=== PATIENT | male | born 1950 | race Caucasian/White ===

== ENCOUNTER 2019-08-11 10:02 | Outpatient (CLI) | payer MEDICARE, BC, SELFPAY ==
[2019-08-11 12:47] LABS: Calculated LDL 120 mg/dL (<100); Cholesterol 194 mg/dL (<200); HDL Cholesterol 63 mg/dL (40-60); Triglyceride 57 mg/dL (<150)
[2019-08-13 09:02] LABS: PSA, Diagnostic 2.4 ng/mL (0.0-4.5)
== END 2019-08-11 10:22 ==
PROVIDERS: PCP Emergency Medicine; Visit Provider Family Medicine
DX: E78.00 Pure hypercholesterolemia, unspecified (principal); N52.9 Male erectile dysfunction, unspecified; N40.0 Benign prostatic hyperplasia without lower urinary tract symptoms
CPT/HCPCS: 36415; 80061; 84153

== ENCOUNTER 2020-02-01 07:18 | Outpatient (CLI) | payer MEDICARE, BC, SELFPAY ==
[2020-02-06 01:35] LABS: SARS-CoV-2 RNA Undetected (Undetected); SARS-CoV-2 Specimen Source Nasopharynx
== END 2020-02-01 07:38 ==
PROVIDERS: PCP Emergency Medicine; Visit Provider Family Medicine
DX: Z11.59 Encounter for screening for other viral diseases (principal)
CPT/HCPCS: U0003

== ENCOUNTER 2023-10-25 01:03 | Outpatient (CLI) | payer MEDICARE, BC, SELFPAY ==
[2023-10-25 12:33] LABS: ALT 35 U/L (16-63); AST 20 U/L (15-37); Alkaline Phosphatase 73 U/L (46-116); Anion Gap 7.8 mmol/L (3-11); BUN 18 mg/dL (7-18); CO2 29.2 mmol/L (21.0-32.0); CREATININE 1.1 mg/dL (0.70-1.30); Calcium 9.7 mg/dL (8.5-10.1); Calculated LDL 102 mg/dL (<100); Chloride 101 mmol/L (98-107); Cholesterol 185 mg/dL (<200); Estimated GFR 71.32 (mL/min/1.73m2); Glucose 117 mg/dL (74-106); HDL Cholesterol 73 mg/dL (40-60); Potassium 4.2 mmol/L (3.5-5.1); Sodium 138 mmol/L (136-145); Total Protein 7.3 g/dL (6.4-8.2); Triglyceride 50 mg/dL (<150)
[2023-10-25 18:25] LABS: PSA, Diagnostic 3.7 ng/mL (<=6.5)
== END 2023-10-25 01:04 | disposition home or self-care (01) ==
LOC: LOS 01:03
PROVIDERS: PCP Family Medicine; Visit Provider Family Medicine
DX: I10 Essential (primary) hypertension (principal); E03.9 Hypothyroidism, unspecified; N40.0 Benign prostatic hyperplasia without lower urinary tract symptoms
CPT/HCPCS: 36415; 80053; 80061; 84153; 84443

== ENCOUNTER → 2024-11-16 09:14 | Outpatient (BNVA) | payer MEDICARE, BC, SELFPAY | PROVIDERS: PCP Family Medicine; Referring Provider Family Medicine; Visit Provider Student in an Organized Health Care Education/Training Program | DX: R13.10 Dysphagia, unspecified (principal); K44.9 Diaphragmatic hernia without obstruction or gangrene | CPT/HCPCS: 99203 ==

== ENCOUNTER 2024-12-31 01:10 | Outpatient (CLI) | payer MEDICARE, BC, SELFPAY ==
[2024-12-31 13:53] LABS: ALT 36 U/L (16-63); AST 21 U/L (15-37); Albumin 3.7 g/dL (3.4-5.0); Alkaline Phosphatase 89 U/L (46-116); Anion Gap 6.3 mmol/L (3-11); BUN 17 mg/dL (7-18); Bilirubin, Total 0.8 mg/dL (0.2-1.0); CO2 29.7 mmol/L (21.0-32.0); Calcium 9.3 mg/dL (8.5-10.1); Chloride 102 mmol/L (98-107); Estimated GFR 79.47 (mL/min/1.73m2); Glucose 113 mg/dL (74-106); Potassium 4.1 mmol/L (3.5-5.1); Sodium 138 mmol/L (136-145)
[2024-12-31 18:41] LABS: PSA, Diagnostic 4.2 ng/mL (<=6.5)
[2024-12-31 19:18] LABS: Hepatitis C Ab w Rflx HCV PCR Negative (Negative)
== END 2024-12-31 01:11 | disposition home or self-care (01) ==
PROVIDERS: PCP Family Medicine; Visit Provider Family Medicine
DX: Z11.59 Encounter for screening for other viral diseases (principal); I10 Essential (primary) hypertension; N40.0 Benign prostatic hyperplasia without lower urinary tract symptoms
CPT/HCPCS: 36415; 80053; 86803; 84153

== ENCOUNTER 2025-01-18 11:55 | Day surgery (SDC) | payer MEDICARE, BC, SELFPAY ==
[2025-01-18 12:06] VITALS: BP 135/88; PULSE 65; RESP 16; TEMP 36.7; O2SAT 98
--- NOTE | 2025-01-18 12:09 | W.SURGCON ---
Date of service: 01/18/25 Time of Service: 12:10 Assessment and Plan Assessment and plan (1) Hiatal hernia: Status: Chronic Assessment and plan: 74-year-old man with a symptomatic hiatal hernia. Due for EGD evaluation. He also gets some dysphagia here and there. Presumably this is kinking of his esophagus but if there is an actual stricture from longstanding acid reflux, he may benefit from dilation. Overall plan: EGD with possible dilation History of Present Illness Narrative: Damion is a healthy 74-year-old man who is known to me from prior consultation. He has had no new symptoms and no changes in his existing symptoms. He has been told in the past he has a hiatal hernia. He does not take medication to manage his acid reflux. Occasionally things get stuck. 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) T7-8 level MRI 10/26 Male erectile dysfunction, unspecified (Chronic 09/27/15) Anxiety (Chronic 09/28/16) Medical History (Updated 01/18/25 @ 13:20 by Zackery Schneider MD) Hemorrhoids Fatigue Right sided sciatica (01/08/18) Migraine Left inguinal hernia (01/08/18) Irritable bowel syndrome with constipation (09/06/17) Grief at loss of child (04/23/17) son killed in MVA 2017 Dysphagia globus Constipation Carpal tunnel syndrome bilateral Actinic keratosis Surgical History History of arthroplasty Status post inguinal hernia repair Status post tonsillectomy S/P unilateral inguinal hernia repair S/P right inguinal hernia repair S/P tonsillectomy S/P vasectomy H/O esophagogastroduodenoscopy strictures Vasectomy Tonsillectomy Repair of inguinal hernia RIGHT EGD - MAC (~2010) Colonoscopy - MAC (10/16/17) Arthroscopy WRIST; tenosynovitis repair Family History Mother , age 84 Depression Heart disease Father Diabetes Heart disease Glaucoma Sister Depression Sister Depression Brother No problems noted. Brother No problems noted. Maternal Grandfather , age 65 Diabetes Paternal Grandfather , age 75 No problems noted. Maternal Grandmother , age 65 No problems noted. Paternal Grandmother , age 75 No problems noted. Daughter Depression Daughter Depression Maternal History Anxiety Migraine Degenerative joint disease of low back Paternal History Glaucoma Social History (Updated 10/25/23 @ 11:27 by Marj Vasquez) Smoking/Tobacco Use Status: Never Second Hand Exposure: Yes Smoking risk assessment performed?: Yes Alcohol Intake: current Alcohol Intake frequency: a few times a week Alcohol type: beer and hard liquor Drug use: Never Substance use type: does not use Adopted: No Caregiver/Support person: No Household members: spouse Housing: house Number of Children: 4 number of grandchildren: 3 Communication Needs: Corrective Lenses Education Level: college Do you need help understanding health information?: Rarely 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, 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 Pets and animals: No Sexually active: Yes Do you think of yourself as: straight/heterosexual Current gender identity: male What is your relationship status?: How often do you talk on the phone with friends or family?: three or more times per week How often do you get together with friends or relatives?: once per week How often do you attend latter-day or restoration services?: 1-3 times per year Do you belong to any clubs or organized social groups?: yes Panel score (0-1 are the most socially isolated patients): 3 What type of physical activity do you participate in: walking, aerobic, bicycling, weight lifting and yoga Duration: 30-45 minutes/day Frequency: 3-4 times per week Gwendolyn/Jainism: Yarsanism Special gwendolyn needs: No Seatbelt use: always Helmet use: Yes Helmet use: always Drive intox or ride w/intox cdl company driver: No Firearms in home: Yes Firearms unloaded and locked: Yes Do you feel safe at home: Yes Do you feel safe in your relationship?: Yes Victim of physical abuse: No Victim of emotional abuse: No Victim of sexual abuse: No Would you like helpful sources: No Exam Narrative Exam Narrative: Gen: Non-toxic, comfortable and interactive Neuro: Alert and oriented x3 Psych: Good mood and affect. Good insight and understanding into condition. Chest: Non-labored breathing, no wheezing, no visible shortness of breath. Heart: Regular
--- NOTE | 2025-01-18 12:11 | W.PM.DSUDISC ---
Date of service: 01/18/25 Discharge Plan Disposition Patient Disposition: Home Condition: Good Discharge Details Attending Provider: Zackery Schneider Primary Care Provider: Rafaela Gong Home Meds and New Rx's Prescriptions: No Action diclofenac sodium [Voltaren Arthritis Pain] 1 % gel 2 g topical QID PRN [id number]-N6 1,000mcg-680mcg DFE-1.5 mg tablet,chewable 1 tab PO DAILY Patient Comments: Suggested by Dr Gong duloxetine 30 mg capsule,delayed release(/EC) 30 mg PO BID Qty: 180 4RF sildenafil [Viagra] 100 mg tablet 100 mg PO DIRECTED PRN (Reason: sexual activity) Qty: 30 4RF ciprofloxacin HCl 500 mg tablet 500 mg PO BID Qty: 14 0RF Rx Instructions: take 1 after each loose stool zinc gluconate 30 mg tablet See Rx Instructions PO DAILY Rx Instructions: 15mg PO daily; Magnesium Cholate 450 mg PO DAILY Metamucil 3.4 gram/5.4 gram powder 2 tsp PO DAILY PRN Rx Instructions: mix into at least 8 oz of water or juice before administering Tvc-U-Upceibn Forte 50 mcg/drop (2, 000 unit/drop) drops 25 mcg PO DAILY vitamin B complex Tablet 1 tab PO DAILY tonkat ali 500 mg 2 tab PO DAILY acetaminophen [Tylenol Extra Strength] 500 MG tablet 1,000 mg PO PRN PRN Discharge Instructions Additional Instructions: FINDINGS: You have a moderate?size hiatal hernia. This is causing your acid reflux. The acid reflux is causing inflammation at the bottom of your esophagus which is what you feel from time to time. I recommend that you either start taking medication for this or, consider repairing the hiatal hernia to prevent continued acid reflux. I do NOT recommend continuing with the current strategy of no medication and no surgery which I believe puts you at risk for developing esophagus cancer. If you want to start antiacid medications, then you should follow-up with your PCP and discuss. If you want to discuss hiatal hernia surgery which will result in preventing further acid reflux, schedule follow-up visit with me to discuss further. Stand Alone Forms: Anesthesia Discharge Inst., Colonoscopy Post Instructions, Saray Sutherland (DSU) Activity:: Activity as Tolerated Diet:: As Tolerated Discharge Orders Discharge Orders: Discharge Order (Routine); Ordered 01/18/25 Ordered By: Zackery Schneider
--- NOTE | 2025-01-18 12:21 | W.ANESPRE ---
General Info Date of Service Date Performed: 01/18/25 Height: 5 ft 10 in Weight: 77.8 kg Body Mass Index (BMI): 24.6 Surgical Procedure: Operation Date: 01/18/25 12:20 Proposed Procedure Side Surgeon p Gastroscopy with Dilation Zackery Schneider MD Meds Allergies and Home Medications Allergies Allergy/AdvReac Type Severity Reaction Status Date / Time lactose Allergy Severe INTOLERANT Verified 01/18/25 12:04 morphine Allergy Unknown RASH Verified 01/18/25 12:04 Penicillins Allergy Unknown As a Verified 01/18/25 12:04 child, cannot recall reaction Home Medication ?Medication ?Instructions ?Recorded acetaminophen 500 mg tablet 1,000 mg PO PRN PRN 02/14/16 (Tylenol Extra Strength) zinc gluconate 30 mg tablet See Rx Instructions PO DAILY 09/19/21 Magnesium Cholate 450 mg PO DAILY 10/08/22 cholecalciferol (vitamin D3) 50 25 mcg PO DAILY 10/08/22 mcg/drop (2,000 unit/drop) oral drops (Utk-A-Dtlsupy Forte) vitamin B complex 1 tab PO DAILY 10/08/22 diclofenac sodium 1 % topical gel 2 g topical QID PRN 09/02/23 (Voltaren Arthritis Pain) tonkat ali 2 tab PO DAILY 09/24/24 B12 1,000 1 tab PO DAILY More energy 11/10/24 mcg-methyltetrahydrofolate 680 mcg DFE-B6 1.5 mg chew tablet ciprofloxacin HCl 500 mg tablet 500 mg PO BID #14 tabs 11/10/24 duloxetine 30 mg capsule,delayed 30 mg PO BID #180 tab-caps 11/10/24 release sildenafil 100 mg tablet (Viagra) 100 mg PO DIRECTED PRN sexual 11/10/24 activity #30 tabs psyllium husk 3.4 gram/5.4 gram 2 tsp PO DAILY PRN 11/16/24 oral powder (Metamucil) Current Visit Medications: Current Medications Generic Name Dose Route Start Last Admin Trade Name Freq PRN Reason Stop Dose Admin Ringer's Solution 1,000 mls @ 80 mls/hr 01/18/25 06:00 IV 01/18/25 23:59 [facility] IV Miscellaneous Supplies 1 each 01/18/25 06:00 Iv Access IV 01/18/25 23:59 DIRECTED VANESA Sodium Chloride 0 ml 01/18/25 06:00 Normal Saline Flush 10 Ml Syr IV 01/18/25 23:59 PRN PRN Sodium Chloride 0 ml 01/18/25 06:00 Normal Saline 10 Ml Vial IJ 01/18/25 23:59 DIRECTED PRN Sterile Water 0 ml 01/18/25 06:00 Water,Injection,Sterile 10 Ml Vial IJ 01/18/25 23:59 DIRECTED PRN PFSH Active Problems Active Problems: Problem Status Onset Code Hand joint pain Acute M25.549 Esophageal stricture Acute K22.2 Thoracic back pain Acute M54.6 Elevated blood pressure reading Acute R03.0 Thoracic disc herniation Chronic 07/14/13 M51.24 Male erectile dysfunction, unspecified Chronic 09/27/15 N52.9 Anxiety Chronic 09/28/16 F41.9 Medical History Medical History Hemorrhoids Fatigue Right sided sciatica (01/08/18) Migraine Left inguinal hernia (01/08/18) Irritable bowel syndrome with constipation (09/06/17) Grief at loss of child (04/23/17) son killed in MVA 2017 Dysphagia globus Constipation Carpal tunnel syndrome bilateral Actinic keratosis Surgical History Surgical History History of arthroplasty Status post inguinal hernia repair Status post tonsillectomy S/P unilateral inguinal hernia repair S/P right inguinal hernia repair S/P tonsillectomy S/P vasectomy H/O esophagogastroduodenoscopy strictures Vasectomy Tonsillectomy Repair of inguinal hernia RIGHT EGD - MAC (~2010) Colonoscopy - MAC (10/16/17) Arthroscopy WRIST; tenosynovitis repair Tobacco Smoking/Tobacco Use Status: Never Passive smoking exposure: Yes Second hand exposure: Yes Alcohol Alcohol Intake: current Alcohol intake frequency: a few times a week Alcohol type: beer and hard liquor Substance Use Substance use: Never Substance use type: does not use Vital Signs and Lab Results Vital Signs Most Recent Vital Signs in EMR: Most Recent Vital Signs Temp Pulse Resp BP Pulse Ox 36.7 C 65 16 135/88 98 01/18/25 12:06 01/18/25 12:06 01/18/25 12:06 01/18/25 12:06 01/18/25 12:06 Lab Results Complete Metabolic Panel: Sodium, (136-145) 138 mmol/L 12/31/24, 10:15 Potassium, (3.5-5.1) 4.1 mmol/L 12/31/24, 10:15 Chloride, (98-107) 102 mmol/L 12/31/24, 10:15 Carbon Dioxide, (21.0-32.0) 29.7 mmol/L 12/31/24, 10:15 BUN, (7-18) 17 mg/dL 12/31/24, 10:15 Creatinine, (0.70-1.30) 1.0 mg/dL 12/31/24, 10:15 Est GFR (CKD-EPI 2020), (mL/min/1.73m2) 79.47 12/31/24, 10:15 Calcium, (8.5-10.1) 9.3 mg/dL 12/31/24, 10:15 Albumin, (3.4-5.0) 3.7 g/dL 12/31/24, 10:15 Glucose, (74-106) 113 mg/dL H 12/31/24, 10:15 Liver Function Panel: ALT, (16-63) 36 U/L 12/31/24, 10:15 AST, (15-37) 21 U/L 12/31/24, 10:15 Infectious Disease: Hepatitis C Antibody, (Negative) Negative 12/31/24, 10:15 Anesthesia Assessment and Plan Anesthesia History Personal History: No History of Anesthesia Complications Family History: No Family History of Anesthesia Complications Exercise Tolerance Exercise Tolerance: Metabolic Equivalents>4 Cardiac & Pulmonary Exam Cardiac Exam: Normal S1/S2 Heart Sounds Pulmonary Exam: Clear Bilateral Breath Sounds Implantable Cardiac Device Does patient have a Pacemaker or an ICD?: No Airway Exam Known Difficult Airway: No Mallampati Class: 3 Mouth Opening: Normal (> 3cm) Thyromental Distance: Less than 3 cm Neck Range of Motion: Full ROM Neck Circumference: Normal Teeth Condition: Normal Dentition ASA Classification ASA Score: ASA 2 Emergency Case?: No NPO Status NPO Status: NPO Clears >2 hours, Solids >8 hours Anesthesia Plan Resuscitation Status: Full Code Anesthesia Technique: General Anesthesia Airway Planned: Natural Airway Monitors Used: Standard Monitors Preoperative Comments:: 74 yo male for EGD/dilation. Sig PMHx: GERD (watches what he eats. gets it 1-2 times per week. no meds), esophageal stricture, anxiety, never smoker, occ EtOH. Previous Anes: - colo, prop, natural airway, no issues.
[2025-01-18] MEDS: Lactated Ringers 1,000 ML 80 ML IV (12:27)
[2025-01-18 12:39] VITALS: BMI 24.6
--- NOTE | 2025-01-18 13:21 | ENDO_ITS ---
Date of service: 01/18/25 Time of Service: 13:21 Endoscopy Report PROCEDURE DESCRIPTION: PROCEDURES PERFORMED: 1. EGD with biopsies PREOPERATIVE DIAGNOSIS: Hiatal hernia, GERD with esophagitis, dysphagia POSTOPERATIVE DIAGNOSIS: Moderate?sized type I hiatal hernia (Hill grade 3), di stal esophagitis SURGEON: Albert Schneider MD INDICATION FOR PROCEDURE: 74-year-old man who reports he has a known hiatal hernia. He has on and off acid reflux. He also occasionally notices that things get stuck. He does not take any treatment for his acid reflux. FINDINGS: D2/D3 = normal D1/bulb = normal - no ulcers or inflammation Pylorus = normal Antrum = normal appearance, no ulcers, cold forceps biopsies were taken to rule out H. pylori routinely Body = normal appearance Fundus = normal, no polyps Cardia = normal Hiatus = Hill grade 3 hiatal defect. Sliding type I hiatal hernia. Approximately 3 cm slide. GE JUNCTION = at the GE junction is polypoid and inflammatory tissue. I do not think this represents cancer but it certainly could harbor dysplasia or early cancer based on the appearance. If this was cancerous, it would be Siewart class II (cardiac carcinoma). Multiple biopsies were taken here. This is certainly the cause of why food occasionally gets stuck. Distal esophagus = proximal to the true GE junction, there is no visible inflammation and separate biopsies were taken here to assess. Mid esophagus = normal in appearance Proximal esophagus/hypopharynx/vocal cords = normal SURVEILLANCE-INTERVAL/FOLLOW-UP: Based off of the findings at the GE junction - the patient needs to either start antiacid medical therapy or consider hiatal hernia repair with antireflux surgery Specimens: Yes EBL: Minimal COMPLICATIONS: None Procedure in detail: The patient gave written consent and was in agreement with the indications, the potential risks as well as the benefits of the procedure. The patient was taken to the endoscopy suite and laid on their left side. Anesthesia was given which was tolerated well. We performed a timeout and we are in agreement I started the procedure. A well-lubricated endoscope was gently and carefully advanced down the esophagus, into the stomach the scope was and through the pylorus into the duodenum. The scope was then slowly withdrawn with the above-noted findings/interventions. The patient tolerated the procedure well and was then taken to the PACU/day surgery in stable condition.
--- NOTE | 2025-01-18 13:33 | STOM_PTH ---
PATIENT: Juan Garcia LOC: [facility] U#:[id number] AGE/SX: 74/M ROOM: RE01/18/[address]: Zackery Schneider : 1950 BED: DIS: 01/18/2025 SPEC #: [id number] RECD: 01/18/25 15:46 STATUS: CATY RE #: [id number] LAURO: 01/18/25 13:[address]: Zackery Schneider DEPT: Surgical Specimen RECD BY: Joellen Gordon ENTERED: 01/18/25 15:48 SP TYPE: STOMACH OTHR DR: Rafaela Gong MD, DC Tissues: 1 - STOMACH BIOPSY 2 - STOMACH BIOPSY 3 - ESOPHAGUS BIOPSY Procedures: GROSS AND MICRO LEVEL 4 Comments: [id number]
[2025-01-18 13:46] VITALS: BP 128/91; PULSE 66; RESP 17; TEMP 36.5; O2SAT 98
--- NOTE | 2025-01-18 14:04 | W.ANESPOSTOP ---
Postoperative Evaluation Date, Time and Location Date Performed: 01/18/25 Time Performed: 13:49 Patient Location: Day Surgery Unit Vital Signs Most Recent Imported Vital Signs: Most Recent Vital Signs Temp Pulse Resp BP Pulse Ox 36.5 C 66 17 128/91 H 98 01/18/25 13:46 01/18/25 13:46 01/18/25 13:46 01/18/25 13:46 01/18/25 13:46 Pain Score Most Recent Pain Score: Most Recent Pain Score Pain Level 0 01/18/25 13:46 Assessment Mental Status: Awake (Alert & Oriented to Patient Baseline) Airway and Respiratory Function: Patent airway with normal (patient baseline) respiratory exam Cardiovascular Function: Hemodynamically Stable Hydration Status: Adequately Hydrated Nausea & Vomiting: No Nausea or Vomiting Pain: Pt. Denies Any Pain Peripheral Nerve Block: Patient did not receive a nerve block
[2025-01-18 14:24] VITALS: BP 141/88; PULSE 58; RESP 16; TEMP 36.5; O2SAT 98
== END 2025-01-18 15:07 | disposition home or self-care (01) ==
LOC: SUR 11:55
PROVIDERS: PCP Family Medicine; Visit Provider Student in an Organized Health Care Education/Training Program
PROC: 0D758ZZ Dilation of Esophagus, Via Natural or Artificial Opening Endoscopic (ICD-10-PCS; CPT 43239; principal; 2025-01-18 12:15)
DX: K44.9 Diaphragmatic hernia without obstruction or gangrene (principal); K21.00 Gastro-esophageal reflux disease with esophagitis, without bleeding; R13.10 Dysphagia, unspecified; K31.89 Other diseases of stomach and duodenum; K22.89 Other specified disease of esophagus
CPT/HCPCS: 43239; 88305; J2003; J2704

== ENCOUNTER → 2025-04-05 14:26 | Outpatient (BNVA) | payer MEDICARE, BC, SELFPAY | PROVIDERS: PCP Family Medicine; Referring Provider Family Medicine; Visit Provider Student in an Organized Health Care Education/Training Program | DX: K44.9 Diaphragmatic hernia without obstruction or gangrene (principal) | CPT/HCPCS: 99213 ==